=== PATIENT | female | born 1950 | race Caucasian/White ===

== ENCOUNTER 2020-04-19 23:12 | Observation (INO) | payer MEDICARE, OTHER ==
[~2020-04-19] VITALS: Ht 152.4 cm; Wt 61.2 kg
[~2020-04-19 23:12] MED LIST: AMOXICILLIN875 MG PO; CALCIUM CHEL1 CAP OR; CELEBREX100 M1 PO; CHERATUSSIN OR; CRESTOR10 MG PO; CYMBALTA60 MG OR; D 10001000 UNIT OR; ESTROVEN OR; FOSAMAX5 MG OR; SYNTHROID75 MCG OR
--- NOTE | 2020-04-19 23:18 | NUR ---
PATIENT AMBULATORY TO ROOM 13 WITH SPOUSE FOR BEDSIDE TRIAGE. PATIENT STATES HEADACHE IS BEHIND HER LEFT EYE, STATES SHE HAS BEEN VOMITING SINCE 1800 WHEN HEADACHE STARTED. PATIENT ALSO STATES SHE FEELS LIKE SHE IS NOT SPEAKING RIGHT. SPEECH DURING TRIAGE WAS CLEAR AND APPROPRIATE. MD NOTIFIED OF PATIENT.
--- NOTE | 2020-04-19 23:27 | NUR ---
PATIENT TO CAT SCAN ALONG WITH TELENEUROLOGY DR CAMACHO.
--- NOTE | 2020-04-19 23:42 | NUR ---
UPON FURTHER EXAM WITH NEUROLOGIST, PATIENT HAVING DYSARTHRIA WHEN READING SENTENCES AND WORDS.
--- NOTE | 2020-04-19 23:52 | NUR ---
PATIENT STATES SHE TAKES A BLOOD PRESSURE MEDICATION BUT CANNOT RECALL THE NAME. UNABLE TO CALL PHARMACY AT THIS HOUR.
[2020-04-19 23:59] LABS: HEMATOCRIT 45.6 % (37.0-47.0); HEMOGLOBIN 14.5 g/dl (12.0-16.0); IMMATURE GRANULOCYTES 0.5 % (0.0-5.0); MEAN CELL VOLUME 96.2 fL CALC (80.0-100.0); MEAN CORPUSCULAR HGB 30.6 pG CALC (26.0-32.0); MEAN CORPUSCULAR HGB CONC 31.8 g/dL CAL (32.0-36.0); NEUT# 9.98 thou/uL (2.00-7.15); RED BLOOD COUNT 4.74 mill/uL (4.20-5.60); RED CELL DISTRI WIDTH 13.5 % (11.5-15.5)
--- NOTE | 2020-04-19 23:59 | NUR ---
PT SENT TO CT AFTER STROKE ALERT CALLED. TELENEROLOGY TO CT. STOKE SCALE DONE AT CT. IV STARTED AND LABS DRAWN. SENT TO LAB. PT THEN TO XRAY FOR CXR. RETURNED TO ER WITHOUT INCIDENT. DR. BOWDEN TO BEDSIDE TO DISCUSS RESULTS AND POC. PT CONNECTED TO MONITORS. LIGHTS DIMMED. HOB ELEVATED. PT MEDICATED FOR COMFORT. STROKE SWALLOW STUDY COMPLETED. PT GIVEN ASA. ICE PACK GIVEN AND ADDITIONAL BLANKET.
[2020-04-20] VITALS (9 sets, daily range): BP systolic 108–160; BP diastolic 46–71
[2020-04-20 00:17] LABS: ALBUMIN 4.4 g/dL (3.2-5.0); ALKALINE PHOSPHATASE 102 u/l (38-126); ANION GAP 13 (6-22 (CALC)); BILIRUBIN, TOTAL 0.4 mg/dL (0.0-1.4); BUN 14 mg/dL (8-23); BUN/CREATININE RATIO 17 (12-20 (CALC)); CARBON DIOXIDE 29 mmol/l (22-30); CHLORIDE 95 mmol/l (95-108); CREATININE 0.8 mg/dL (0.5-1.0); ETHYL ALCOHOL 0 mg/dl (0-30); GFR > 60 ML/MIN (>=60 (CALC)); GFR FOR AFR.AMER. > 60 ML/MIN (>=60 (CALC)); LIPASE 65 u/l (23-300); POTASSIUM 4.1 mmol/l (3.5-5.1); SGOT/AST 42 u/l (9-36); SODIUM 133 mmol/l (137-146)
[2020-04-20 00:18] LABS: ACT PARTIAL THROMBO TIME 26.6 SECONDS (20.0-32.5); PROTHROMBIN TIME 9.9 SECONDS (9.0-12.5)
--- NOTE | 2020-04-20 01:15 | NUR ---
HOME. PT RESTING.
--- NOTE | 2020-04-20 01:49 | NUR ---
REPORT TO WILLIAN OJHNSON RN
--- NOTE | 2020-04-20 02:20 | NUR ---
PT IS STILL HAVING SOME EXPRESSIVE APHASIA.
--- NOTE | 2020-04-20 02:20 | NUR ---
TO FLOOR WITHOUT CHANGED. PT UP TO BR UPON ARRIVAL ON FLOOR. URINE SAMPLE TO LAB.
--- NOTE | 2020-04-20 02:30 | NUR ---
TO ICU AT 0225 VIA STRETCHER. ON ARRIVAL, ASKED TO VOID. TO BATHROOM WITH STEADY GAIT AND STANDBY ASSIST-TOLERATED WELL. SPECIMAN OBTAINED AND TO LAB. TO BED WITH STEADY GAIT
--- NOTE | 2020-04-20 02:45 | NUR ---
PT BROUGHT CLOTHES, FLIP FLOPS AND A CELL PHONE WITH HER. NO JEWLERY. SPEECH UNDERSTANDABLE BUT DIFFICULTY "FINDING WORDS"
[2020-04-20 02:47] LABS: URINE BILIRUBIN - DIPSTICK NEGATIVE (NEGATIVE); URINE BLOOD DIPSTICK SMALL (NEGATIVE); URINE COLOR YELLOW; URINE GLUCOSE - DIPSTICK NEGATIVE (NEGATIVE); URINE KETONE NEGATIVE (NEGATIVE); URINE LEUK ESTERASE NEGATIVE (NEGATIVE); URINE NITRITE - DIPSTICK NEGATIVE (Negative); URINE PH 6.5 (4.5-8.0); URINE PROTEIN - DIPSTICK NEGATIVE (NEG-TRACE); URINE UROBILINOGEN - DIPSTICK 0.2 E.U./dL (0.2)
[2020-04-20 02:53] LABS: URINE BACTERIA MODERATE hpf; URINE EPITHELIAL CELLS MANY EPI/hpf (0-FEW)
--- NOTE | 2020-04-20 03:00 | NUR ---
COOPERATIVE. SPEECH CLEAR. HAVING DIFFICULTY NAMING OBJECTS. ONCE NAMED, PT SAYS THAT SHE KNEW WHAT IT WAS CALLED... JUST COULDN'T GET IT OUT. MOVES EXTREMITIES AD GIORGIO. C/O A LITTLE PAIN BEHIND LEFT EYE BUT NOT BAD EARLIER THIS EVENING. DENIES DIFFICULTY BREATHING OR SWALLOWING
--- NOTE | 2020-04-20 03:44 | NUR ---
BEDRESTING. LIGHTS OFF. LAYING ON SIDE WITH EYES CLOSED. NO DISTRESS NOTED
--- NOTE | 2020-04-20 04:20 | NUR ---
BEDRESTING. RESP EVEN AND NONLABORED. NO DISTRESS NOTED.
--- NOTE | 2020-04-20 05:05 | NUR ---
LAB HERE FOR LABWORK RX-TOLERATED WELL. WOKE, THEN DOZED BACK OFF. ALERT. COOPERATIVE
[2020-04-20 05:09] LABS: HEMATOCRIT 46.3 % (37.0-47.0); HEMOGLOBIN 14.6 g/dl (12.0-16.0); IMMATURE GRANULOCYTES 0.5 % (0.0-5.0); MEAN CELL VOLUME 95.7 fL CALC (80.0-100.0); MEAN CORPUSCULAR HGB 30.2 pG CALC (26.0-32.0); MEAN CORPUSCULAR HGB CONC 31.5 g/dL CAL (32.0-36.0); NEUT# 10.01 thou/uL (2.00-7.15); RED BLOOD COUNT 4.84 mill/uL (4.20-5.60); RED CELL DISTRI WIDTH 13.6 % (11.5-15.5)
[2020-04-20 05:45] LABS: ALBUMIN 4.3 g/dL (3.2-5.0); ALKALINE PHOSPHATASE 98 u/l (38-126); ANION GAP 13 (6-22 (CALC)); BILIRUBIN, TOTAL 0.4 mg/dL (0.0-1.4); BUN 12 mg/dL (8-23); BUN/CREATININE RATIO 15 (12-20 (CALC)); CARBON DIOXIDE 29 mmol/l (22-30); CHLORIDE 96 mmol/l (95-108); CREATININE 0.8 mg/dL (0.5-1.0); GFR > 60 ML/MIN (>=60 (CALC)); GFR FOR AFR.AMER. > 60 ML/MIN (>=60 (CALC)); SGOT/AST 38 u/l (9-36); SODIUM 133 mmol/l (137-146); TOTAL PROTEIN 7.2 g/dL (6.3-8.2)
--- NOTE | 2020-04-20 06:00 | NUR ---
SPEECH CLEAR. NOT HAVING DIFFICULTY "FINDING WORDS" EARLIER. WILL CONTINUE TO EVALUATE/MONITOR.
--- NOTE | 2020-04-20 06:45 | NUR ---
PT REPORT RECEIVED, PT RESTING QUIETLY AT THIS TIME. VITAL SIGNS STABLE
[2020-04-20 07:48] LABS: CHOLESTEROL HDL RATIO 2.7 (<4.4 (CALC))
--- NOTE | 2020-04-20 08:40 | NUR ---
PT RESTING QUIETLY ON STRETCHER, A/O X3, NO SPEACH DEFICIET NOTED AT THIS TIME. DENIES ANY PAIN AT THIS TIME
--- NOTE | 2020-04-20 08:49 | NUR ---
DR. CRISTINA AT BEDSIDE, SPEAKING WITH PT.
--- NOTE | 2020-04-20 10:00 | NUR ---
PT PLACED IN W/C AND TAKEN TO MRI. PT REMAINS A/O X3.
--- NOTE | 2020-04-20 10:52 | NUR ---
PT TAKEN FROM MRI TO ULTRASOUND PER W/C, PT REMAINS A/O X3
[2020-04-20] MEDS ORDERED: TENORMIN50 MG PO (11:35)
[2020-04-20] MEDS ORDERED: CRESTOR20 MG PO (11:35)
[2020-04-20] MEDS ORDERED: LEVOTHYROXIN50 MCG PO (11:36)
[2020-04-20] MEDS ORDERED: CYMBALTA60 MG PO (11:36)
[2020-04-20] MEDS ORDERED: TYLENOL325 M2 (11:37)
[2020-04-20] MEDS ORDERED: VITAMIN D PO (11:38)
--- NOTE | 2020-04-20 12:41 | NUR ---
PT RESTING QUIETLY WITH AT BEDSIDE, ADVISED PT THAT WE ARE WAITING FOR THE TO REVIEW HER NOTES AND DISCHARGE PT.
[2020-04-20] MEDS ORDERED: ASPIRIN ADULT L81 M2 PO (13:24)
--- NOTE | 2020-04-20 14:01 | NUR ---
IV D/C'D, SITE HEALTHY. PT DISCHARGE INSTRUCTIONS GIVEN AND PT VOICES UNDERSTANDING. PLACED IN W/C AND TAKEN TO TRANSPORTATION ACCOMPANIED PER FAMILY. PT REMAINS A/OX3. NO SLURRED SPEACH, RANGE OF MOTION FULL.
--- NOTE | 2020-04-20 14:53 | NUR ---
sPOKE WITH DR VILLA ABOUT ULTRASOUND RESULTS. DR VILLA INFORMED THIS WAFER FABRICATOR TO CALL PATIENT AND ENCOURAGE HER TO FOLLOW UP WITH DR SALAZAR AND WITH HIM SOON POSSIBLE. DR VILLA WOULD ALSO LIKE TO MAKE SURE PATIENT TAKES ASPIRIN DIRECTED UPON DISCHARGE. CALLED SPOKE WITH PATIENT AND PASSED ON MESSAGE FROM DR VILLA. PATIENT ACKNOWLEDGED UNDERSTANDING OF INSTRUCTIONS AND WILL FOLLOW UP SOON POSSIBLE
== END 2020-04-20 13:53 | disposition home or self-care (01) ==
LOC: ED 23:12 → ED-I 23:30 → ED 23:30 → ED-I 23:59 → ED 04-20 00:21 → ICU 04-20 00:22
PROVIDERS: ADMIT Internal Medicine; ATTEND Internal Medicine
DX: R51 Headache (principal); R47.81 Slurred speech; I10 Essential (primary) hypertension; E03.9 Hypothyroidism, unspecified; F17.210 Nicotine dependence, cigarettes, uncomplicated; Z20.828 Contact with and (suspected) exposure to other viral communicable diseases
CPT/HCPCS: S0164

== ENCOUNTER 2024-03-16 17:21 | Emergency (ER) | payer MEDICARE, OTHER ==
[2024-03-16] VITALS (19 sets, daily range): BP systolic 132–192; BP diastolic 64–114
[~2024-03-16] VITALS: Ht 152.4 cm; Wt 52.2 kg
[~2024-03-16 17:21] MED LIST changes: +ASPIRIN ADULT L81 M2 PO; +CRESTOR20 MG PO; +CYMBALTA60 MG PO; +LEVOTHYROXIN50 MCG PO; +TENORMIN50 MG PO; +TYLENOL325 M2; +VITAMIN D PO
[2024-03-16] MEDS ORDERED: DOXYCYCLINE HYCLATE 100 MG in SODIUM CHLORIDE 0.9% 100 ML IV ONE (17:40)
[2024-03-16] MEDS ORDERED: cefTRIAXone SODIUM 2 GM in SODIUM CHLORIDE 0.9% 100 ML IV ONE (17:40)
[2024-03-16] MEDS ORDERED: DEXAMETHASONE SOD. PHOSPHATE 10 MG/ML VIAL IV ONE (17:40)
[2024-03-16] MEDS ORDERED: ALBUTEROL SULFATE 8 GM INH IN ONE (17:40)
[2024-03-16 18:17] LABS: BASO% 0.2 % (0-3); HEMATOCRIT 56.6 % (37.0-47.0); HEMOGLOBIN 17.2 g/dl (12.0-16.0); IMMATURE GRANULOCYTES 0.5 % (0.0-5.0); LYMPH% 9.8 % (15-41); MEAN CELL VOLUME 90.6 fL CALC (80.0-100.0); MEAN CORPUSCULAR HGB 27.5 pG CALC (26.0-32.0); MEAN CORPUSCULAR HGB CONC 30.4 g/dL CAL (32.0-36.0); MONO% 7.1 % (2-13); NEUT# 10.97 thou/uL (2.00-7.15); NEUT% 82.4 % (42-76); RED BLOOD COUNT 6.25 mill/uL (4.20-5.60); RED CELL DISTRI WIDTH 20.6 % (11.5-15.5)
[2024-03-16 18:31] LABS: ALBUMIN 4.1 g/dL (3.2-5.0); BILIRUBIN, TOTAL 0.7 mg/dL (0.02-1.3); CREATININE 0.8 mg/dL (0.5-1.0); POTASSIUM 3.8 mmol/l (3.5-5.1); TOTAL PROTEIN 7.8 g/dL (6.3-8.2)
[2024-03-16] MEDS ORDERED: ENOXAPARIN SODIUM 100 MG/ML SYR SC ONE (18:45)
[2024-03-16] MEDS ORDERED: ASPIRIN 81 MG/TAB PO ONE (18:45)
[2024-03-16] MEDS ORDERED: FUROSEMIDE 40 MG/4 ML SDV IV ONE (19:20)
[2024-03-16 19:39] LABS: ACT PARTIAL THROMBO TIME 26.8 SECONDS (20.0-32.5)
[2024-03-16 19:40] LABS: INTERNATIONAL NORMALIZED RATIO 1.3 RATIO (0.7-1.3); PROTHROMBIN TIME 11.9 SECONDS (9.0-12.5)
[2024-03-16] MEDS ORDERED: ALBUTEROL SULFATE 2.5 MG VIAL IN ONE (20:30)
[2024-03-16] MEDS ORDERED: IPRATROPIUM-Albuterol 0.5MG-2.5MG/3 ML NEB ONE (20:30)
[2024-03-16] MEDS ORDERED: MAGNESIUM SULFATE HEPTAHYDRATE 50 ML IV ONE (20:30)
[2024-03-16] MEDS ORDERED: NITROGLYCERIN 2% OINT UD 1 GM/PAK TD ONE (21:25)
== END 2024-03-16 22:15 | disposition short-term general hospital (02) ==
LOC: ED 17:21
PROVIDERS: Family Medicine
DX: I21.4 Non-ST elevation (NSTEMI) myocardial infarction (principal); U07.1 COVID-19; J44.1 Chronic obstructive pulmonary disease with (acute) exacerbation; J81.1 Chronic pulmonary edema; I10 Essential (primary) hypertension; E78.5 Hyperlipidemia, unspecified; Z86.73 Personal history of transient ischemic attack (TIA), and cerebral infarction without residual deficits
CPT/HCPCS: J1650; J3475

== ENCOUNTER 2024-08-08 07:39 | Emergency (ER) | payer MEDICARE, OTHER ==
[2024-08-08] VITALS (21 sets, daily range): BP systolic 105–151; BP diastolic 43–105
[~2024-08-08] VITALS: Ht 152.4 cm; Wt 45.0 kg
[2024-08-08] MEDS ORDERED: ALBUTEROL108 MCG/AC (08:07)
[2024-08-08] MEDS ORDERED: TRELEGY ELLIPTA1 AER (08:09)
[2024-08-08] MEDS ORDERED: CRESTOR40 MG PO (08:09)
[2024-08-08 08:10] LABS: BASO% 0.3 % (0-3); EOS% 0.2 % (0-8); HEMATOCRIT 59.2 % (37.0-47.0); HEMOGLOBIN 18.3 g/dl (12.0-16.0); IMMATURE GRANULOCYTES 0.3 % (0.0-5.0); LYMPH% 10.4 % (15-41); MEAN CORPUSCULAR HGB 29.7 pG CALC (26.0-32.0); MEAN CORPUSCULAR HGB CONC 30.9 g/dL CAL (32.0-36.0); MONO% 6.4 % (2-13); NEUT# 14.72 thou/uL (2.00-7.15); NEUT% 82.4 % (42-76); RED BLOOD COUNT 6.16 mill/uL (4.20-5.60); RED CELL DISTRI WIDTH 13.6 % (11.5-15.5)
[2024-08-08] MEDS ORDERED: LASIX 40 MG TAB40 MG PO (08:12)
[2024-08-08 08:14] LABS: MEAN CELL VOLUME 96.1 fL CALC (80.0-100.0)
[2024-08-08] MEDS ORDERED: NICODERM C21 MG/242 (08:14)
[2024-08-08 08:40] LABS: ALBUMIN 4.3 g/dL (3.2-5.0); CREATININE 0.9 mg/dL (0.5-1.0); POTASSIUM 3.9 mmol/l (3.5-5.1); TOTAL PROTEIN 7.8 g/dL (6.3-8.2)
[2024-08-08 08:50] LABS: BILIRUBIN, TOTAL 1.6 mg/dL (0.02-1.3)
[2024-08-08] MEDS ORDERED: ASPIRIN 81 MG/TAB PO ONE (09:30)
[2024-08-08 11:21] LABS: URINE BILIRUBIN - DIPSTICK Negative (NEGATIVE); URINE BLOOD DIPSTICK Negative (NEGATIVE); URINE GLUCOSE - DIPSTICK Negative (NEGATIVE); URINE KETONE Negative (NEGATIVE); URINE LEUK ESTERASE Negative (NEGATIVE); URINE PROTEIN - DIPSTICK 100 mg/dL (NEG-TRACE); URINE UROBILINOGEN - DIPSTICK 0.2 E.U./dL (0.2)
[2024-08-08 11:30] LABS: URINE COLOR Yellow; URINE NITRITE - DIPSTICK Negative (Negative)
[2024-08-08 11:31] LABS: URINE BACTERIA RARE hpf; URINE EPITHELIAL CELLS MODERATE EPI/hpf (0-FEW); URINE WBC 0-2 WBC/hpf (0-5)
== END 2024-08-08 12:00 | disposition short-term general hospital (02) ==
LOC: ED 07:39
PROVIDERS: Emergency Medicine
DX: I21.4 Non-ST elevation (NSTEMI) myocardial infarction (principal); I11.0 Hypertensive heart disease with heart failure; I50.9 Heart failure, unspecified; J44.9 Chronic obstructive pulmonary disease, unspecified; E78.5 Hyperlipidemia, unspecified; Z86.73 Personal history of transient ischemic attack (TIA), and cerebral infarction without residual deficits
CPT/HCPCS: J0696